=== PATIENT | female | born 1930 | race Caucasian/White ===

== ENCOUNTER 2017-01-19 08:57 | Emergency (ER) | payer MEDICARE ==
[~2017-01-19] VITALS: Ht 144.8 cm; Wt 39.0 kg
[2017-01-19 09:05] VITALS: BP 121/72
[2017-01-19] MEDS ORDERED: [UNRECOGNIZED DRUG - CODE] PO (09:48)
[2017-01-19] MEDS ORDERED: METR500T8 PO (09:48)
[2017-01-19] MEDS ORDERED: TETR500C3 PO (09:48)
--- NOTE | 2017-01-19 09:55 | PHYS DOC ---
General Chief Complaint: HALLUCINATIONS AUDIBLE/VISUAL Stated Complaint: MEDICINE SIDE EFFECTS Time Seen by MD: 09:12 Source: patient Exam Limitations: no limitations Problems: History of Present Illness Initial Comments Patient is an 86-year-old female who comes to the ED complaining medication side effects. Patient was diagnosed with H pylori peptic ulcer disease, she was started on triple therapy including omeprazole, amoxicillin, clarithromycin. She says several days after starting the medication she noticed that, a few minutes to hours after taking the meds she started hearing songs. Symptoms have worsened past few days and she has started to become confused. No visual hallucinations no focal neurologic deficits patient looked online and thinks she might have dementia from omeprazole. Her primary care physician is on vacation. Timing/Duration: 1 week, getting worse Severity: moderate Modifying Factors: worse with medication Associated Symptoms: other Past Medical History Medical History: other (hypertension) Surgical History: appendectomy Social History Smoker: non-smoker Alcohol: none Drugs: none Review of Systems Constitutional: denies chills, denies diaphoresis, denies fever Respiratory: denies cough, denies shortness of breath Cardiovascular: denies chest pain, denies palpitations, denies syncope Gastrointestinal: see HPI Genitourinary: denies dysuria, denies frequency, denies hematuria Musculoskeletal: denies back pain, denies joint swelling, denies neck pain Psychiatric/Neurological: see HPI, denies headache, denies paresthesia, denies seizure, denies weakness Physical Exam General Appearance: WD/WN, no apparent distress Eyes: bilateral eye normal inspection, bilateral eye PERRL, bilateral eye EOMI Ear, Nose, Throat: hearing grossly normal, normal ENT inspection Neck: non-tender, supple Respiratory: normal breath sounds, no respiratory distress Cardiovascular: normal peripheral pulses, regular rate, rhythm Gastrointestinal: non tender, soft Back: no CVA tenderness, no vertebral tenderness Extremities: non-tender, normal inspection Neurologic/Psychiatric: 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 Patient has only been taking omeprazole for a short period. I discussed the treatment plan she expressed agreement and understanding. Departure Time of Disposition: 09:49 Disposition: 01 HOME, SELF-CARE Diagnosis: adverse med affect, auditory hallucination, H pylo Condition: STABLE Patient Instructions: Drug Reaction, GI Intolerance, Hallucinations and Delusions Additional Instructions: Aggressive hydration with Gatorade or water to prevent dehydration. As discussed it appears you are having an adverse reaction to clarithromycin. Discontinue amoxicillin and clarithromycin. Continue omeprazole. Prescription: Bismuth subsalicylate, metronidazole, tetracycline Take medications with food to avoid nausea or abdominal discomfort. If you still experience adverse GI symptoms try to take the metronidazole and tetracycline separately. As discussed it may take a few days for the auditory hallucinations to resolve completely. Follow-up Dr. Gasca's office in 2-3 days for recheck. Return to the ED with new or changing symptoms. DYANA VASQUES DO Jan 19, 2017 09:55
== END 2017-01-19 10:05 | disposition home or self-care (01) ==
LOC: ER 08:57
DX: R44.0 Auditory hallucinations (principal); R41.0 Disorientation, unspecified; T47.1X5A Adverse effect of other antacids and anti-gastric-secretion drugs, initial encounter; T36.0X5A Adverse effect of penicillins, initial encounter; T36.3X5A Adverse effect of macrolides, initial encounter; B96.81 Helicobacter pylori [H. pylori] as the cause of diseases classified elsewhere; I10 Essential (primary) hypertension; Y92.89 Other specified places as the place of occurrence of the external cause
CPT/HCPCS: 99283

== ENCOUNTER 2017-02-13 19:58 | Emergency (ER) | payer MEDICARE ==
[~2017-02-13] VITALS: Ht 144.8 cm; Wt 40.1 kg
[~2017-02-13 19:58] MED LIST: METR500T8 PO; TETR500C3 PO; [UNRECOGNIZED DRUG - CODE] PO
[2017-02-13] MEDS ORDERED: ASPIRIN 81 MG TAB.CHEW PO ONE (21:00)
[2017-02-13 21:12] LABS: BASO % 1 % (0-3); EOS # 0.1 x10^3/uL (0.0-0.7); EOS % 1 % (0-3); HEMATOCRIT 39.8 % (36.0-47.0); HEMOGLOBIN 13.3 g/dL (12.0-15.5); LYMPH # 1.2 x10^3/uL (1.0-4.8); LYMPH % 20 % (24-48); MEAN CORPUSCULAR HEMOGLOBIN 29 pg (25-35); MEAN CORPUSCULAR HGB CONC 33 g/dL (31-37); MEAN CORPUSCULAR VOLUME 87 fL (79-100); MONO # 0.3 x10^3/uL (0.0-1.1); MONO % 6 % (0-9); NEUT # 4.2 x10^3uL (1.8-7.7); NEUT % 72 % (31-73); PLATELET COUNT 323 x10^3/uL (140-400); RED BLOOD COUNT 4.59 x10^6/uL (3.50-5.40); RED CELL DISTRIBUTION WIDTH 16.2 % (11.5-14.5); WHITE BLOOD COUNT 5.8 x10^3/uL (4.0-11.0)
[2017-02-13 21:19] LABS: ALBUMIN 3.9 g/dL (3.4-5.0); ALBUMIN/GLOBULIN RATIO 1.1 (1.0-1.7); CALCIUM 9.1 mg/dL (8.5-10.1); CREATININE 0.9 mg/dL (0.6-1.0); GFR 59.5; POTASSIUM 3.5 mmol/L (3.5-5.1); TOTAL BILIRUBIN 0.6 mg/dL (0.2-1.0); TOTAL PROTEIN 7.5 g/dL (6.4-8.2)
[2017-02-13 21:48] LABS: BILIRUBIN,URINE NEG (NEG); CLARITY,URINE CLEAR; COLOR,URINE YELLOW; GLUCOSE,URINE NEG (NEG); NITRITE,URINE NEG (NEG); UROBILINOGEN,URINE 0.2 mg/dL (0.2 mg/dL)
[2017-02-13 21:49] LABS: BACTERIA,URINE 0 /HPF (0-FEW); SQUAMOUS EPITHELIAL CELL,UR FEW /LPF; WBC,URINE RARE /HPF (0-4)
--- NOTE | 2017-02-13 21:49 | EKG ---
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
[2017-02-13 22:06] VITALS: BP 123/71
--- NOTE | 2017-02-13 23:14 | RAD ---
EXAM: CHEST PA LATERAL HISTORY: Hypertensive, evaluate left effusion. COMPARISON: None. TECHNIQUE: Frontal and lateral views of the chest are obtained. FINDINGS: There is a moderate to large amount of left pleural fluid present, as well as a left sided pneumothorax within the superior mediastinum measuring approximately 2.4 cm from the chest wall. There is opacification of the underlying left lung, likely representing compressive atelectasis. The right lung appears clear. There are prominent interstitial opacities present within both perihilar regions, may represent interstitial edema or vascular congestion. Cardiac silhouette is obscured. Visualized osseous structures and overlying soft tissues demonstrate no acute finding. IMPRESSION: Left hydropneumothorax, with likely underlying compressive atelectasis. This was discussed with Dr. Perez in the ER. Electronically signed by: Holly Starr MD (02/13/2017 11:11 PM) [facility]
--- NOTE | 2017-02-14 00:22 | PHYS DOC ---
General Chief Complaint: HYPERTENSION Stated Complaint: HIGH BLOOD PRESSURE Time Seen by MD: 20:10 Source: patient, family, old records Exam Limitations: no limitations Problems: History of Present Illness Initial Comments Patient is an 86-year-old female brought to the ED by her spouse with concerns about high blood pressure. Patient states that for the past 3-4 days she just "hasn't felt right." She states that earlier today she felt somewhat lightheaded and checked her blood pressure which is typically controlled and had readings at home of 180s systolic. She follows with Dr. Alvarez for cardiology needs and her spouse reports that recently her blood pressure medications were cut in half. She denies any specific chest pain but did have some dyspnea on exertion earlier today, no related nausea vomiting diaphoresis arm or neck symptoms. ED vitals: 98.1, 78, 18, 152/82, 94% room air Patient fairly recently diagnosed with H. pylori peptic ulcer disease, she failed 2 outpatient multi drug regimens to treat this condition due to medication side effects and has an upcoming gastroenterology appointment. She has had some epigastric discomfort, some weight loss, and intermittent nausea she has been attributing to this condition. Patient relays a history of breast cancer treated with lumpectomy and radiation treatment 12 years ago. Patient also relays distant history of mechanical fall with rib fractures and traumatic left pneumothorax, treated with chest tube patient cannot recall how long ago or much in the way of details regarding this. Timing/Duration: other (past 3-4 days, worst earlier today) Severity: moderate Modifying Factors: improves with other Associated Symptoms: malaise, nausea/vomiting, weakness Allergies: Coded Allergies: codeine (Verified Allergy, Unknown, 02/13/17) Past Medical History Medical History: other (breast cancer diagnosed 12 years ago treated with lumpectomy and radiation, hypertension, irritable bowel, H pylori peptic ulcer disease, traumatic left pneumothorax many years ago treated with chest tube) Surgical History: appendectomy, cancer surgery (lumpectomy), other ( thyroidectomy) Social History Smoker: cigarettes (approximately [id number] history quit 45 years ago) Drugs: none Review of Systems Constitutional: denies chills, denies fever, malaise Respiratory: denies cough, shortness of breath, denies wheezing Cardiovascular: denies chest pain, denies edema, denies palpitations, denies syncope Gastrointestinal: see HPI Genitourinary: denies dysuria, denies frequency, denies hematuria Musculoskeletal: denies back pain, denies joint swelling, denies neck pain Psychiatric/Neurological: denies headache, denies numbness, denies paresthesia Hematologic/Lymphatic: denies blood clots, denies easy bleeding, denies easy bruising Physical Exam General Appearance: no apparent distress, thin Eyes: bilateral eye normal inspection, bilateral eye PERRL, bilateral eye EOMI Ear, Nose, Throat: hearing grossly normal, normal ENT inspection, normal pharynx Neck: non-tender, supple, normal inspection Respiratory: chest non-tender, decreased breath sounds (left lower lung field) , other (no rales rhonchi or wheezes noted) Cardiovascular: normal peripheral pulses, regular rate, rhythm Gastrointestinal: normal bowel sounds, non tender, soft Back: no CVA tenderness, no vertebral tenderness Extremities: normal range of motion, non-tender, normal inspection (trace pitting lower extremity edema bilaterally) Neurologic/Psychiatric: 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 Indication, left-sided hydropneumothorax. Patient received 25 g fentanyl intravenously as the procedure started for analgesia, no sedation used. 2 L of O2 via nasal cannula supply throughout the procedure. Sterile technique, 8mLs lidocaine with epinephrine first to create a skin wheal and then anesthetized tract to the superior aspect of the sixth rib in the left midaxillary line. A #10 blade with transverse incision 2.5 cm. Curved hemostat utilized along with index finger for blunt dissection. Curved hemostat with operators index finger into pleural cavity no masses or adhesions noted. Chest tube passed easily into the intrathoracic space with copious amounts of yellow transudative expressed and specimens obtained/sent to lab for culture and sensitivity, bloody fluid protein and LDH as well as cell count. The surgical wound was sutured shut with good wound edge approximation using 3- 0 Ethilon, 3 total sutures. Plastic bolster was then utilized to affix the tube to the external chest wall using 3-0 Ethilon suture material. Patient's heart rate did elevate to the low 110's at times during the procedure although the patient denied any new or changing symptoms. Patient tolerated the procedure well no complications estimated blood loss is minimal. Orders, Labs, Meds EKG: Normal sinus rhythm 80 bpm, artifact noted in the anterolateral leads with nonspecific T contour abnormalities no STEMI changes. Portable chest x-ray: There appears to be a moderate left-sided pleural effusion , will check 2 view study. Labs unremarkable, urine with squamous epithelial contamination and presence of blood culture and sensitivity sent. PATIENT: KATE GILES I ACCOUNT: [id number] : 1930 LOCATION: ER AGE: 86 SEX: F EXAM STATUS: REG ER ORD. PHYSICIAN: DYANA VASQUES DO REASON: eval left effusion PROCEDURE: CHEST PA & LATERAL EXAM: CHEST PA LATERAL HISTORY: Hypertensive, evaluate left effusion. COMPARISON: None. TECHNIQUE: Frontal and lateral views of the chest are obtained. FINDINGS: There is a moderate to large amount of left pleural fluid present, as well as a left sided pneumothorax within the superior mediastinum measuring approximately 2.4 cm from the chest wall. There is opacification of the underlying left lung, likely representing compressive atelectasis. The right lung appears clear. There are prominent interstitial opacities present within both perihilar regions, may represent interstitial edema or vascular congestion. Cardiac silhouette is obscured. Visualized osseous structures and overlying soft tissues demonstrate no acute finding. IMPRESSION: Left hydropneumothorax, with likely underlying compressive atelectasis. This was discussed with Dr. Vasques in the ER. Electronically signed by: Caroline Starr MD (02/13/2017 11:11 PM) [facility] Post-Procedure: DICTATED AND SIGNED BY: CAROLINE STARR MD DATE: 02/13/17 3705 CC: DYANA VASQUES DO; TON MITCHELL MD ~ PATIENT: KATE GILES I ACCOUNT: [id number] : 1930 LOCATION: ER AGE: 86 SEX: F EXAM STATUS: REG ER ORD. PHYSICIAN: DYANA VASQUES DO REASON: chest tube placement PROCEDURE: CHEST AP ONLY EXAM: CHEST AP ONLY HISTORY: Post chest tube placement. COMPARISON: February 13, 2017 TECHNIQUE: Frontal view of the chest is obtained. FINDINGS: There has been interval placement of a thin caliber left-sided chest tube with the distal tip overlying the inferior hemithorax. There has been interval decrease in amount of pleural fluid present. There is persistence of a pneumothorax, which measures 1.3 cm from the superior lateral chest wall when compared to previously 2 to 2.4 cm, when measured in a similar fashion. There is now visualization of a pleural line consistent with pneumothorax more inferiorly within the hemithorax, likely secondary to improved visualization given decreased pleural fluid. Left mid and lower lung opacification remains, likely adjacent compressive atelectasis. Right lung remains clear. Cardiomediastinal silhouette is better visualized appearing within normal limits of size. Visualized osseous structures and overlying soft tissues demonstrate no acute interval change. IMPRESSION: Interval placement of left chest tube with decreased volume of pleural fluid. A hydropneumothorax remains, detailed above. Electronically signed by: Caroline Starr MD (02/14/2017 2:03 AM) [facility] DICTATED AND SIGNED BY: CAROLINE STARR MD DATE: 02/14/17 0157 CC: DYANA VASQUES DO; TON MITCHELL MD ~ ED COURSE: 86-year-old female with history of traumatic left pneumothorax and breast cancer treated lumpectomy and radiation 12 years ago to the ED with nonspecific symptoms and complaints that her blood pressure running high earlier today. ED evaluation reveals left hydropneumothorax, given her smoking history as well as history of breast cancer highly suspicious for malignancy as primary cause. Chest tube adequately placed with improved plain films, appropriate studies sent for pleural fluid evaluation. I discussed these issues with the patient at length and her questions were answered she is agreeable to transfer to [facility] for further evaluation and treatment. I discussed the patient with Dr. Ernandez on-call car pre cooler. 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 1413: I discussed the patient with Dr. Stella Saleem, she accepts the patient for ICU admission at [facility] IMPRESSIONS: Left hydropneumothorax Large left pleural effusion Hypertension, uncontrolled Inadequately treated Helicobacter pylori peptic ulcer disease. Tobacco, breast cancer, and radiation history malignancy risks. Departure Time of Disposition: 02:13 Disposition: 02 XFER SHT-TRM HOSP Diagnosis: hydropneumothorax, large left pleural effusion, hy Condition: IMPROVED Additional Instructions: EMS transfer to [facility] for ICU admission Dr. Saleem is accepting. DYANA VASQUES DO Feb 14, 2017 00:22
[2017-02-14] MEDS ORDERED: IV NORMAL SALINE 1,000ML 1,000 ML IV SCH (00:54)
--- NOTE | 2017-02-14 02:07 | RAD ---
EXAM: CHEST AP ONLY HISTORY: Post chest tube placement. COMPARISON: February 13, 2017 TECHNIQUE: Frontal view of the chest is obtained. FINDINGS: There has been interval placement of a thin caliber left-sided chest tube with the distal tip overlying the inferior hemithorax. There has been interval decrease in amount of pleural fluid present. There is persistence of a pneumothorax, which measures 1.3 cm from the superior lateral chest wall when compared to previously 2 to 2.4 cm, when measured in a similar fashion. There is now visualization of a pleural line consistent with pneumothorax more inferiorly within the hemithorax, likely secondary to improved visualization given decreased pleural fluid. Left mid and lower lung opacification remains, likely adjacent compressive atelectasis. Right lung remains clear. Cardiomediastinal silhouette is better visualized appearing within normal limits of size. Visualized osseous structures and overlying soft tissues demonstrate no acute interval change. IMPRESSION: Interval placement of left chest tube with decreased volume of pleural fluid. A hydropneumothorax remains, detailed above. Electronically signed by: Holly Starr MD (02/14/2017 2:03 AM) [facility]
[2017-02-14] MEDS ORDERED: cefTRIAXone SODIUM 1 GM VIAL IV ONE (02:44)
[2017-02-14] MEDS ORDERED: IV NORMAL SALINE 50ML 50 ML ONE (02:44)
[2017-02-14 04:11] LABS: BF COLOR YELLOW; BF SOURCE PLEURAL
[2017-02-14 04:12] LABS: BF MON % 89 %; BF PMN % 11 %; BF RBC COUNT 941; BF WBC COUNT 1597
[2017-02-14 04:13] LABS: BF CLARITY HAZY
[2017-02-14] MEDS ORDERED: LIDOCAINE 2%/EPI 1:100,000 20 ML VIAL. IJ ONE ×2 (04:30)
--- NOTE | 2017-02-14 07:20 | RAD ---
Portable chest, 02/13/2017, 9:16 PM: History: Hypertension No previous chest radiographs are available at this time for comparison purposes. The heart is mildly enlarged. There is a moderate volume of left-sided pleural fluid with a small pneumothorax in the left apical region. There is moderate underlying atelectasis/infiltrate in the left lower chest. There are linear parenchymal opacities on the right probably due to scarring. The pulmonary vascularity as best visualized on the right is within normal limits. No right-sided pleural fluid is seen. The bony structures are demineralized. IMPRESSION: 1. Moderate sized left hydropneumothorax with moderate underlying atelectasis/infiltrate in the left lower chest. 2. Cardiomegaly. 3. Scattered pulmonary scars.
== END 2017-02-14 03:47 | disposition short-term general hospital (02) ==
LOC: ER 19:58
DX: J93.83 Other pneumothorax (principal); J90 Pleural effusion, not elsewhere classified; I10 Essential (primary) hypertension; K25.9 Gastric ulcer, unspecified as acute or chronic, without hemorrhage or perforation; F17.210 Nicotine dependence, cigarettes, uncomplicated; Z88.5 Allergy status to narcotic agent
CPT/HCPCS: 32551; 36415; 51702; 71010; 71020; 80053; 81001; 82550; 83615; 83690; 84157; 84484; 85025; 85610; 85730; 87070; 89050; 93005; 96361; 96365; 96375; 99285; J0696; J3010; J7030

== ENCOUNTER → 2017-02-28 | Outpatient (CLI) | payer MEDICARE ==
[2017-02-13 22:06] VITALS: BP 123/71
--- NOTE | 2017-02-28 12:22 | RAD ---
2 views of the Chest 02/28/2017 2:00 AM Indication: SHORT OF AIR Comparison: Chest radiograph February 26, 2017 at [facility]. Findings: There is a persistent small left apical pneumothorax. Left thoracostomy tube remains in place. The thorax is grossly similar in size. No new focal infiltrate is identified. Heart size is stable. Bony thorax remains intact. Impression: Grossly stable small left apical pneumothorax. Thoracostomy tube in place.
== END | disposition home or self-care (01) ==
LOC: DXRAD 11:56
PROVIDERS: ATTEND Internal Medicine Critical Care Medicine
DX: Z46.82 Encounter for fitting and adjustment of non-vascular catheter (principal); R06.02 Shortness of breath
CPT/HCPCS: 71020

== ENCOUNTER → 2017-03-04 | Outpatient (CLI) | payer MEDICARE ==
[2017-02-13 22:06] VITALS: BP 123/71
--- NOTE | 2017-03-04 12:26 | RAD ---
2 views of the Chest 03/04/2017 2:00 AM Indication: Pneumothorax Comparison: 2 views of the chest February 28, 2017 Findings: There is a persistent small left apical pneumothorax. Left thoracostomy tube is unchanged in position. Right upper lobe opacity most likely scarring is similar. No pleural effusion is identified. Heart size is normal. Aortic calcification noted. No acute osseous changes are seen. Impression: Stable small left apical pneumothorax. Left thoracostomy tube remains in place.
== END | disposition home or self-care (01) ==
LOC: RAD 11:58
PROVIDERS: ATTEND Internal Medicine Critical Care Medicine
DX: J93.9 Pneumothorax, unspecified (principal); I70.0 Atherosclerosis of aorta; Z97.8 Presence of other specified devices
CPT/HCPCS: 71020

== ENCOUNTER → 2017-03-13 | Outpatient (CLI) | payer MEDICARE ==
[2017-02-13 22:06] VITALS: BP 123/71
--- NOTE | 2017-03-13 15:45 | RAD ---
CHEST PA LATERAL Clinical Indication: PTX Comparison: Chest radiograph 03/04/2017 Findings: Interval removal of left chest tube. Normal lung volume. Unchanged right apical opacities. No new consolidation. Stable pulmonary vasculature. Increased in size of left apical pneumothorax with 1.8 cm pleural separation, previously 0.7 cm. Small left pleural effusion. The cardiomediastinal silhouette and great vessels are stable. No acute osseous abnormality. IMPRESSION: 1. Interval increase in size of left apical pneumothorax with 1.8 cm pleural separation, previously 0.7 cm. 2. Small left pleural effusion. 3. Interval removal of left chest tube.
== END | disposition home or self-care (01) ==
LOC: DXRAD 13:38
PROVIDERS: ATTEND Internal Medicine
DX: Z46.82 Encounter for fitting and adjustment of non-vascular catheter (principal); J93.9 Pneumothorax, unspecified; J90 Pleural effusion, not elsewhere classified
CPT/HCPCS: 71020

== ENCOUNTER → 2017-04-02 | Outpatient (CLI) | payer MEDICARE ==
--- NOTE | 2017-04-02 12:36 | RAD ---
2 views of the Chest 04/02/2017 2:00 AM Indication: Shortness of breath. Pneumothorax Comparison: 2 views of the chest March 13, 2017 Findings: Redemonstration of a left hydropneumothorax. Both the gas component and fluid component has minimally increased in the interim. Heart size is stable. Right lung is grossly clear other than chronic interstitial changes. Bony thorax is grossly stable. Impression: Minimal interval increase in the gas and fluid component of left hydropneumothorax. Otherwise stable chest.
== END | disposition home or self-care (01) ==
LOC: DXRAD 11:36
PROVIDERS: ATTEND Internal Medicine Critical Care Medicine
DX: J93.9 Pneumothorax, unspecified (principal); F17.210 Nicotine dependence, cigarettes, uncomplicated
CPT/HCPCS: 71020

== ENCOUNTER → 2017-06-11 | Outpatient (CLI) | payer MEDICARE ==
--- NOTE | 2017-06-11 12:17 | RAD ---
Chest, 2 views, 06/11/2017: History: Cough Comparison is made to a study from 04/02/2017. There is an ongoing or recurrent left pneumothorax estimated at approximately 10-15% in volume. There is increasing left lower chest opacity compatible with pleural fluid. There is moderate underlying atelectasis in the left infrahilar region. The heart appears to be at the upper limits of normal in size. There is calcific plaquing the aorta. The pulmonary vascularity is normal. There is mild linear scarring in the right upper chest. No acute right lung infiltrate is seen. There is no evidence of right-sided pleural fluid. IMPRESSION: 1. Increasing moderate-sized left pleural effusion with moderate underlying atelectasis. Occult neoplasm within this process cannot be excluded. 2. Small ongoing or recurrent left-sided pneumothorax.
== END | disposition home or self-care (01) ==
LOC: DXRAD 11:51
PROVIDERS: ATTEND Internal Medicine Critical Care Medicine
DX: J90 Pleural effusion, not elsewhere classified (principal); J93.9 Pneumothorax, unspecified
CPT/HCPCS: 71046

== ENCOUNTER → 2017-09-03 | Outpatient (CLI) | payer MEDICARE ==
--- NOTE | 2017-09-03 12:46 | RAD ---
PA and lateral chest radiograph. History: Follow-up pneumothorax/pleural effusion. Comparison: June 11, 2017. Findings: Evaluation of the cardiac silhouette is limited, but is suspected to be enlarged. Right lung appears clear. There is a large left hydropneumothorax. The pleural effusion component appears large and has increased from comparison study. The pneumothorax component also appears increased in the interval, estimated to involve about 15-20% of the left pleural space. Impression: 1. Interval enlargement of both the pleural effusion and pneumothorax component of left hydropneumothorax. 2. Results were phoned to referring physician, Dr. Ernandez, at 1241 hours. Electronically signed by: Rick Angeles MD (09/03/2017 12:42 PM) [facility]
== END | disposition home or self-care (01) ==
LOC: DXRAD 12:13
PROVIDERS: ATTEND Internal Medicine Critical Care Medicine
DX: J90 Pleural effusion, not elsewhere classified (principal); J93.9 Pneumothorax, unspecified; I10 Essential (primary) hypertension
CPT/HCPCS: 71046

== ENCOUNTER → 2017-10-27 | Outpatient (CLI) | payer MEDICARE ==
[~2017-10-27] MED LIST changes: -TETR500C3 PO; +[UNRECOGNIZED DRUG - CODE] PO
--- NOTE | 2017-10-27 12:14 | RAD ---
CHEST PA LATERAL Clinical indications: F/U LUNG COLLAPSE SIX MONTHS AGO; NO DIFFICULTY BREATHING AT THIS TIME. Comparison: September 03, 2017. Findings: Again seen is a hydropneumothorax on the left side. The pneumothorax component is unchanged. There has been a mild decrease in amount of left-sided pleural effusion with improvement of associated compressive atelectasis or infiltrate of the left lung base. No new lung infiltrate is seen on the right side. The heart size and mediastinum are stable. 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 There has been mild improvement in the pleural effusion component. Electronically signed by: Mario Constantino MD (10/27/2017 12:11 PM) [id number]
== END | disposition home or self-care (01) ==
LOC: DXRAD 11:02
PROVIDERS: ATTEND Internal Medicine Critical Care Medicine
DX: J93.81 Chronic pneumothorax (principal); J94.8 Other specified pleural conditions; I10 Essential (primary) hypertension; Z87.891 Personal history of nicotine dependence
CPT/HCPCS: 71046

== ENCOUNTER 2017-11-03 14:29 | Emergency (ER) | payer MEDICARE ==
[~2017-11-03] VITALS: Ht 152.4 cm; Wt 40.4 kg
[2017-11-03] MEDS ORDERED: IPRATRPIUM/ALBUTEROL 0.5/2.5MG 3 ML NEBU. NEB ONE (15:00)
--- NOTE | 2017-11-03 15:04 | EKG ---
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
--- NOTE | 2017-11-03 15:09 | PHYS DOC ---
Past History Past Medical History: Cancer, Hypertension Additional Past Medical Histor: hydropneumothorax Past Surgical History: Appendectomy, Cancer Surgery, Other Alcohol Use: None Drug Use: None Adult General Chief Complaint Chief Complaint: SHORTNESS OF BREATH [facility] 86-year-old female patient with history of chronic hydropneumothorax of left lung since 2015 secondary to left breast cancer radiation therapy about 17 years ago states she seen by her power technician about 2 weeks ago and had thoracentesis and seen by her power technician 1 week ago and had chest x-ray that showed accommodation of fluid in her lung. Patient complaining of increasing shortness of breath for the last 2-3 days without chest pain. Patient complaining of chronic nonproductive cough with chest pain, fever and chills, focal neuro deficit, generalized weakness. Patient called her power technician who recommended to come to emergency room for obtaining chest x-ray. Review of Systems Review of Systems Constitutional: Denies fever or chills [] Eyes: Denies change in visual acuity, redness, or eye pain [] HENT: Denies nasal congestion or sore throat [] Respiratory: Reports cough and shortness of breath Cardiovascular: No additional information not addressed in HPI [] GI: Denies abdominal pain, nausea, vomiting, bloody stools or diarrhea [] : Denies dysuria or hematuria [] Musculoskeletal: Denies back pain or joint pain [] Integument: Denies rash or skin lesions [] Neurologic: Denies headache, focal weakness or sensory changes [] Endocrine: Denies polyuria or polydipsia [] All other systems were reviewed and found to be within normal limits, except as documented in this note. Allergies Allergies Allergies Coded Allergies Type Severity Reaction Last Updated Verified codeine Allergy Unknown 02/13/17 Yes Physical Exam Physical Exam Constitutional: Well developed,very thin, mild distress, non-toxic appearance. [ ] HENT: Normocephalic, atraumatic Eyes: PERRLA, EOMI, conjunctiva normal, no discharge. [] Neck: Normal range of motion, no tenderness, supple, no stridor. [] Cardiovascular:Heart rate regular rhythm, no murmur [] Lungs & Thorax: Mild intercostal retraction with decrease of air movement in left lung, no wheezing Abdomen: Bowel sounds normal, soft, no tenderness, no masses, no pulsatile masses. [] Skin: Warm, dry, no erythema, no rash. [] Back: No tenderness, no CVA tenderness. [] Extremities: No tenderness, no cyanosis, no clubbing, ROM intact, no edema. [] Neurologic: Alert and oriented X 3, normal motor function, normal sensory function, no focal deficits noted. [] Psychologic: Affect normal, judgement normal, mood normal. [] EKG EKG EKG interpreted by me. EKG at 1453 showed normal sinus rhythm at rate of 66, no acute ST and T wave abnormality T-wave abnormality in lateral leads.[] Radiology/Procedures Radiology/Procedures [[address] [address] IMAGING REPORT Signed PATIENT: KATE GILES I ACCOUNT: [id number] : 1930 LOCATION: ER AGE: 86 SEX: F EXAM STATUS: REG ER ORD. PHYSICIAN: ABELINO WONG MD REASON: shortness of breath, history of pneumohydrothorax PROCEDURE: CHEST PA & LATERAL CHEST PA LATERAL History: Shortness of breath. History of pneumo hydrothorax.. Comparison: October 27, 2017. Heart size is stable. Left hydropneumothorax is redemonstrated. The size of the new pneumothorax is similar. The size of the air-fluid level is similar. No new infiltrate is identified. No right pleural effusion. Shift of the mediastinum towards the right is unchanged. IMPRESSION: Stable left hydropneumothorax. Electronically signed by: Rick Cross MD (11/03/2017 4:03 PM) [facility] DICTATED AND SIGNED BY: RICK CROSS MD DATE: 11/03/17 1536 CC: ABELINO WONG MD; TON MITCHELL MD ~ ] Course & Med Decision Making Course & Med Decision Making Pertinent Labs and Imaging studies reviewed. (See chart for details) Evolution of patient in ER showed 86-year-old female patient with history of chronic hydropneumothorax in left lung with complaining of increasing shortness of breath for the last 2-3 days. Patient had decrease of air movement in left lung with O2 sat of 98% at room air. Patient treated with oxygen, Solu-Medrol and DuoNeb and felt very mild Job shortness of breath. Chest x-ray showed stable hydropneumothorax. On-call power technician at [facility] Dr. Oakley informed at 1536 and agreed with plan of transferring patient to [place] for possible home chest tube placement. Dr. Auguste accepted admission to [facility] at 1538. Patient and her informed about plan of care and needs for transfer. Patient did not need to have Chest tube placement in ER because of a stable hydropneumothorax and vital sign. Dragon Disclaimer Dragon Disclaimer This electronic medical record was generated, in whole or in part, using a voice recognition dictation system. Departure Departure: Impression: Primary Impression: Hydropneumothorax Additional Impressions: Dyspnea Respiratory distress Disposition: 02 XF T-[facility] (to [facility] at 1538) Admitting Physician: Roberto Auguste (accepted transfer to [facility] at 1538) Condition: IMPROVED Referrals: TON MITCHELL MD (PCP) Problem Qualifiers ABELINO WONG MD Nov 03, 2017 15:09
[2017-11-03 15:19] LABS: BASO # 0.1 x10^3/uL (0.0-0.2); BASO % 1 % (0-3); EOS # 0.1 x10^3/uL (0.0-0.7); EOS % 1 % (0-3); HEMATOCRIT 39.1 % (36.0-47.0); LYMPH # 1.3 x10^3/uL (1.0-4.8); LYMPH % 18 % (24-48); MEAN CORPUSCULAR HEMOGLOBIN 29 pg (25-35); MEAN CORPUSCULAR HGB CONC 33 g/dL (31-37); MEAN CORPUSCULAR VOLUME 89 fL (79-100); MONO # 0.4 x10^3/uL (0.0-1.1); MONO % 6 % (0-9); NEUT # 5.1 x10^3uL (1.8-7.7); NEUT % 73 % (31-73); PLATELET COUNT 291 x10^3/uL (140-400); RED CELL DISTRIBUTION WIDTH 16.3 % (11.5-14.5); WHITE BLOOD COUNT 6.9 x10^3/uL (4.0-11.0)
[2017-11-03] MEDS ORDERED: methylPREDNISolone SOD SUCC PF 125 MG/2 ML VIAL. IV ONE (15:30)
[2017-11-03 15:37] LABS: ALBUMIN 4.2 g/dL (3.4-5.0); ALBUMIN/GLOBULIN RATIO 1.1 (1.0-1.7); CALCIUM 9.4 mg/dL (8.5-10.1); CREATININE 0.9 mg/dL (0.6-1.0); GFR 59.5; POTASSIUM 3.9 mmol/L (3.5-5.1); TOTAL BILIRUBIN 0.6 mg/dL (0.2-1.0)
--- NOTE | 2017-11-03 16:07 | RAD ---
CHEST PA LATERAL History: Shortness of breath. History of pneumo hydrothorax.. Comparison: October 27, 2017. Heart size is stable. Left hydropneumothorax is redemonstrated. The size of the new pneumothorax is similar. The size of the air-fluid level is similar. No new infiltrate is identified. No right pleural effusion. Shift of the mediastinum towards the right is unchanged. IMPRESSION: Stable left hydropneumothorax. Electronically signed by: Rick Cross MD (11/03/2017 4:03 PM) [facility]
[2017-11-03 17:49] VITALS: BP 133/77
== END 2017-11-03 17:54 | disposition short-term general hospital (02) ==
LOC: ER 14:29
DX: J94.8 Other specified pleural conditions (principal); R06.03 Acute respiratory distress; I10 Essential (primary) hypertension; Z88.5 Allergy status to narcotic agent
CPT/HCPCS: 36415; 71046; 80053; 82553; 83880; 84484; 85025; 93005; 94640; 96374; 99285; J2930; J7620

== ENCOUNTER → 2018-01-05 | Outpatient (CLI) | payer MEDICARE ==
--- NOTE | 2018-01-05 16:45 | RAD ---
CHEST PA LATERAL Clinical indications: follow up effusion COMPARISON: November 03, 2017. Findings: Again seen is a moderate-sized hydropneumothorax on the left side which is unchanged. There is compressive atelectasis or consolidation left lung base which is unchanged. No new radiographic abnormality of the right lung field is seen. The heart size, pulmonary vasculature, mediastinum and both richard are stable.. The osseous structures appear intact. Impression: No change in size of moderate-sized left-sided hydropneumothorax and associated compressive atelectasis or consolidation of the left lung base. Electronically signed by: Mario Constantino MD (01/05/2018 4:41 PM) [id number]
== END | disposition home or self-care (01) ==
LOC: DXRAD 11:01
PROVIDERS: ATTEND Internal Medicine Critical Care Medicine
DX: J94.8 Other specified pleural conditions (principal); I10 Essential (primary) hypertension; Z87.891 Personal history of nicotine dependence; Z88.5 Allergy status to narcotic agent
CPT/HCPCS: 71046

== ENCOUNTER → 2018-02-18 | Outpatient (CLI) | payer MEDICARE ==
--- NOTE | 2018-02-18 13:35 | RAD ---
CHEST PA LATERAL dated 02/18/2018 12:00 AM. Comparison: 01/05/2018 Clinical Indication: FOLLOW UP FOR PLEURAL EFFUCION S/P HYDRO PTX. Findings: PA and lateral views were obtained. Heart size moderately enlarged, stable. Prominent hydropneumothorax on the left. The air component at the apex measures about 3.8 cm from the pleural edge to the apical chest wall versus 3.3 cm previously. The fluid component at the base appears to slightly increased in size. The right lung is hyperinflated but otherwise clear. No right-sided pleural effusion or pneumothorax. Impression: 1. Moderate size left-sided hydropneumothorax not significantly changed from prior study. 2. Stable cardiomegaly. Electronically signed by: Rick Saucedo MD (02/18/2018 1:32 PM) [facility]
== END | disposition home or self-care (01) ==
LOC: RAD 10:16
PROVIDERS: ATTEND Internal Medicine Pulmonary Disease
DX: J94.8 Other specified pleural conditions (principal); I51.7 Cardiomegaly
CPT/HCPCS: 71046

== ENCOUNTER 2018-09-18 11:35 | Emergency (ER) | payer MEDICARE ==
[~2018-09-18] VITALS: Ht 152.4 cm; Wt 36.3 kg
[~2018-09-18 11:35] MED LIST changes: +METR-34 PO; -METR500T8 PO
--- NOTE | 2018-09-18 11:59 | PHYS DOC ---
Past History Past Medical History: Cancer, Hypertension Additional Past Medical Histor: hydropneumothorax Past Surgical History: Appendectomy, Cancer Surgery, Other Smoking: Non-smoker Alcohol Use: None Drug Use: None Adult General Chief Complaint Chief Complaint: SHORTNESS OF BREATH [facility] HPI Patient is a 87-year-old female presents with shortness of breath and weakness. This has been getting worse over the past 2-3 days. She has a history of previous breast cancer as well as fluid that collects in her left long this result of the cancer treatment. She is scheduled for a catheter placement in four days to have excess fluid drained from the left chest but she does not feel that she can wait long enough to have this procedure performed. She reports worsening symptoms with laying flat. Notes decreased exercise tolerance.[] Review of Systems Review of Systems Constitutional: Denies fever or chills [] Eyes: Denies change in visual acuity, redness, or eye pain [] HENT: Denies nasal congestion or sore throat [] Respiratory: See history of present illness[] Cardiovascular: No additional information not addressed in HPI [] GI: Denies abdominal pain, nausea, vomiting, bloody stools or diarrhea [] : Denies dysuria or hematuria [] Musculoskeletal: Denies back pain or joint pain [] Integument: Denies rash or skin lesions [] Neurologic: Denies headache, focal weakness or sensory changes [] Endocrine: Denies polyuria or polydipsia [] All other systems were reviewed and found to be within normal limits, except as documented in this note. Allergies Allergies Allergies Coded Allergies Type Severity Reaction Last Updated Verified amoxicillin Allergy Unknown hallucination 04/13/18 Yes clarithromycin Allergy Unknown hallucination 04/13/18 Yes codeine Allergy Unknown 02/13/17 Yes Physical Exam Physical Exam Constitutional: Well developed, cachectic, no acute distress, non-toxic appearance. [] HENT: Normocephalic, atraumatic, bilateral external ears normal, oropharynx moist, no oral exudates, nose normal. [] Eyes: PERRLA, EOMI, conjunctiva normal, no discharge. [] Neck: Normal range of motion, no tenderness, supple, no stridor. [] Cardiovascular:Heart rate regular rhythm, no murmur [] Lungs & Thorax: Decreased breath sounds left chest[] Abdomen: Bowel sounds normal, soft, no tenderness, no masses, no pulsatile masses. [] Skin: Warm, dry, no erythema, no rash. [] Back: No tenderness, no CVA tenderness. [] Extremities: No tenderness, no cyanosis, no clubbing, ROM intact, 1+ pretibial edema. [] Neurologic: Alert and oriented X 3, normal motor function, normal sensory function, no focal deficits noted. [] Psychologic: Affect normal, judgement normal, mood normal. [] EKG EKG EKG shows a sinus rhythm at 78 bpm, normal axis, QTC of 446 ms, no ST elevation, no acute changes when compared to EKG of 11/03/2017[] Radiology/Procedures Radiology/Procedures Chest x-ray shows a large left sided fluid buildup with a pneumothorax. Appears slightly worse than chest x-ray of 02/18/2018[] Course & Med Decision Making Course & Med Decision Making Pertinent Labs and Imaging studies reviewed. (See chart for details) D course: Patient arrived, was placed in bed, and tolerated exam well. After the return of the laboratory and imaging findings, these were discussed with the patient and her , both of whom voiced understanding. Consultation was made with Dr. Agarwal at [place] since she is pending this indwelling catheter procedure in her left lung there by Dr. Gordon next week, for this condition. She graciously accepted the patient. Patient was transferred in improved condition. Medical decision making: Patient with a fluid collection as well as pneumothorax in her left lung. She reports that last time fluid was drained was on 12 September 2018. Given the rapid recurrence and pending a procedure there at [place], transferring her to where she can receive definitive care. This does not appear to be an acute coronary syndrome, nor congestive heart failure.[] Dragon Disclaimer Dragon Disclaimer This electronic medical record was generated, in whole or in part, using a voice recognition dictation system. Departure Departure: Impression: Primary Impression: Abnormal pleural fluid Additional Impression: Pneumothorax Disposition: 05 TRANSFER OTHER Condition: IMPROVED Referrals: TON MITCHELL MD (PCP) Problem Qualifiers Additional Impression: Pneumothorax Pneumothorax type: unspecified pneumothorax Qualified Codes: J93.9 - Pneumothorax, unspecified SO ROJAS DO Sep 18, 2018 11:59
[2018-09-18 12:02] LABS: BASO # 0.1 x10^3/uL (0.0-0.2); BASO % 1 % (0-3); EOS % 0 % (0-3); HEMATOCRIT 43.5 % (36.0-47.0); HEMOGLOBIN 14.3 g/dL (12.0-15.5); LYMPH # 0.6 x10^3/uL (1.0-4.8); LYMPH % 8 % (24-48); MEAN CORPUSCULAR HEMOGLOBIN 29 pg (25-35); MEAN CORPUSCULAR HGB CONC 33 g/dL (31-37); MEAN CORPUSCULAR VOLUME 88 fL (79-100); MONO # 0.5 x10^3/uL (0.0-1.1); MONO % 7 % (0-9); NEUT # 6.3 x10^3uL (1.8-7.7); NEUT % 84 % (31-73); PLATELET COUNT 439 x10^3/uL (140-400); RED BLOOD COUNT 4.94 x10^6/uL (3.50-5.40); RED CELL DISTRIBUTION WIDTH 16.1 % (11.5-14.5); WHITE BLOOD COUNT 7.5 x10^3/uL (4.0-11.0)
[2018-09-18 12:22] LABS: ALBUMIN 3.4 g/dL (3.4-5.0); ALBUMIN/GLOBULIN RATIO 0.9 (1.0-1.7); CALCIUM 9.7 mg/dL (8.5-10.1); CREATININE 0.7 mg/dL (0.6-1.0); GFR 79.3; POTASSIUM 4.3 mmol/L (3.5-5.1); TOTAL BILIRUBIN 0.7 mg/dL (0.2-1.0)
--- NOTE | 2018-09-18 13:10 | RAD ---
PORTABLE CHEST 1V History: Shortness of breath. Cancer with effusion.. Comparison with February 18, 2018. Cardiac silhouette remains enlarged, appears similar. Left hydropneumothorax is again seen. The air component and agree of left lung collapse appears to be slightly greater than on the previous exam, with about 1 cm greater retraction of the pleural surface from the chest wall superolaterally. There also appears to be a slight increase in pleural fluid or pleural thickening as seen at the left lung apex. The right lung demonstrates no consolidation. There are diffuse interstitial opacities. No right pleural effusion. IMPRESSION: Left hydropneumothorax is again seen. The degree of left lung collapse appears slightly greater than on the prior study, left fluid content also appears to be slightly greater. Electronically signed by: Rick Cross MD (09/18/2018 1:07 PM) [facility]
[2018-09-18 14:36] VITALS: BP 117/66
== END 2018-09-18 15:16 | disposition short-term general hospital (02) ==
LOC: ER 11:35
DX: J93.9 Pneumothorax, unspecified (principal); R84.9 Unspecified abnormal finding in specimens from respiratory organs and thorax; I10 Essential (primary) hypertension; Z90.49 Acquired absence of other specified parts of digestive tract; Z88.1 Allergy status to other antibiotic agents; Z88.5 Allergy status to narcotic agent
CPT/HCPCS: 36415; 71045; 80053; 83690; 83880; 84484; 85025; 85610; 93005; 99285